=== PATIENT | male | born 1965 | race Asian ===

== ENCOUNTER 2021-06-18 07:23 | Day surgery (SDC) | payer OTHER, SELFPAY ==
[~2021-06-18] VITALS: Ht 177.8 cm; Wt 108.0 kg
[~2021-06-18 07:23] MED LIST: CEFAZOLIN SOD 2 GM in D5W 50 ML IV ONE
[2021-06-18] MEDS ORDERED: DEXAMETHASONE SOD PHOSPHATE 4 MG/ML VIAL IVP ONE (09:34)
[2021-06-18] MEDS ORDERED: PROPOFOL 200MG/ 20ML VIAL (DIPRIVAN) IV ONE (09:34)
[2021-06-18] MEDS ORDERED: BUPIVACAINE /PF 0.25% 30 ML VIAL INJ ONE (09:34)
[2021-06-18] MEDS ORDERED: fentaNYL CITRATE/PF 100 MCG/2 ML AMP IVP ONE (09:34)
[2021-06-18] MEDS ORDERED: NS IRRIG SOLN 1000 ML IR ONE (09:34)
[2021-06-18] MEDS ORDERED: ONDANSETRON HCL 4 MG/2 ML VIAL IVP ONE (09:34)
[2021-06-18] MEDS ORDERED: LR 1,000 ML IV.SOLN IV ONE (09:34)
[2021-06-18] MEDS ORDERED: BACITRACIN 1 GM OINT TP ONE (09:34)
[2021-06-18] MEDS ORDERED: KETOROLAC TROMETHAMINE 30 MG VIAL IVP ONE (09:34)
[2021-06-18] MEDS ORDERED: DESFLURANE 15 MIN GAS INH ONE (09:34)
[2021-06-18] MEDS ORDERED: ONDANSETRON HCL 4 MG/2 ML VIAL IVP PRN (11:30)
[2021-06-18] MEDS ORDERED: HYDROmorphone 1 MG/ML INJ. CARTRIDGE IVP PRN ×2 (11:30)
[2021-06-18 13:05] VITALS: BP_SYST 130
== END 2021-06-18 13:50 | disposition home or self-care (01) ==
LOC: SDS 07:23 → SMU 07:26 → SDS 13:50
PROVIDERS: ATTEND Surgery
DX: B07.9 Viral wart, unspecified (principal); R20.8 Other disturbances of skin sensation; E11.9 Type 2 diabetes mellitus without complications; E78.5 Hyperlipidemia, unspecified; R79.89 Other specified abnormal findings of blood chemistry; Z88.2 Allergy status to sulfonamides; Z79.899 Other long term (current) drug therapy; Z20.822 Contact with and (suspected) exposure to COVID-19
CPT/HCPCS: 11402; 11422; 17111; 82948; 82962; 88305; J0690; J1100; J1885; J2405; J2704; J3010; J3490; J7060; J7120; U0003